=== PATIENT | male | born 1995 ===

== ENCOUNTER 2016-10-04 12:01 | Emergency (ER) | payer OTHER ==
[2016-10-04] MEDS ORDERED: Naproxen 550 mg Tab PO STA (13:36)
[2016-10-04] MEDS ORDERED: Alum-Mag Hydrox-Simethicone Susp (30 mL) PO STA (13:36)
--- NOTE | 2016-10-04 13:43 | C.PDOC ---
History Of Present Illness 21 y/o male presents to ED with complaint of right sided abdominal pain since yesterday. Patient notes he had food poisoning after eating partially cooked fish on (5 days ago), with fever, vomiting, diarrhea, and abdominal pain lasting for 3 days. Patient states that symptoms have resolved but he has constant pain to the right side of his chest that the pain worsens with deep breaths. Otherwise, denies any other complaints. Time Seen by Provider: 10/04/16 13:15 Chief Complaint (Nursing): Abdominal Pain History Per: Patient History/Exam Limitations: no limitations Onset/Duration Of Symptoms: Days Current Symptoms Are (Timing): Still Present Location Of Pain/Discomfort: RUQ, RLQ Radiation Of Pain To:: None Quality Of Discomfort: "Pain" Associated Symptoms: denies: Fever, Chills, Nausea, Vomiting, Diarrhea, Urinary Symptoms Exacerbating Factors: Deep Breaths Recent travel outside of the [place]: No Past Medical History Reviewed: Historical Data, Nursing Documentation, Vital Signs Vital Signs: Last Vital Signs Temp 98.6 F 10/04/16 12:07 Pulse 65 10/04/16 12:07 Resp 20 10/04/16 12:07 BP 119/76 10/04/16 12:07 Pulse Ox 98 10/04/16 14:20 - Medical History PMH: No Chronic Diseases Family History: States: No Known Family Hx - Social History Hx Alcohol Use: No Hx Substance Use: No - Immunization History Hx Influenza Vaccination: No Review Of Systems Except As Marked, All Systems Reviewed And Found Negative. Constitutional: Negative for: Fever, Chills Cardiovascular: Negative for: Chest Pain Respiratory: Negative for: Cough, Shortness of Breath Gastrointestinal: Positive for: Abdominal Pain. Negative for: Vomiting, Diarrhea Skin: Negative for: Rash Physical Exam - Physical Exam Appears: Non-toxic, No Acute Distress Skin: Normal Color, Warm, Dry, No Rash Head: Atraumatic, Normacephalic Eye(s): bilateral: Normal Inspection, PERRL, EOMI Oral Mucosa: Moist Throat: No Erythema, No Exudate Neck: Normal ROM, Supple Chest: Symmetrical Cardiovascular: Rhythm Regular, No Friction Rub, No Murmur Respiratory: Normal Breath Sounds, No Rales, No Rhonchi, No Wheezing Gastrointestinal/Abdominal: Soft, No Tenderness, No Distention, No Guarding, No Rebound Back: Normal Inspection, No CVA Tenderness Extremity: Normal ROM, Capillary Refill (< 2 sec.) Neurological/Psych: Oriented x3, Normal Speech, Normal Cognition, Normal Motor Gait: Steady ED Course And Treatment O2 Sat by Pulse Oximetry: 98 (RA) Pulse Ox Interpretation: Normal - Other Rad Obstructive Series XR X-Ray: Viewed By Me, Read By Radiologist Interpretation: FINDINGS: CHEST: The cardiomediastinal silhouette appears within normal limits of size. No focal consolidation, significant pleural effusion, or definite pneumothorax identified.Please note that chest x-ray has limited sensitivity for the detection of pulmonary masses. ABDOMEN AND PELVIS: Nonspecific bowel gas pattern without findings to suggest obstruction. Mild constipation. No definite free air. No acute osseous abnormality is detected. IMPRESSION: Mild constipation. Progress Note: Pepcid, Maalox, naproxen, and obstructive series x-ray ordered. Medical Decision Making Medical Decision Making: On re-exam, the patient reports improvement of symptoms. Lungs are CTA, heart is RRR, abdomen is soft, non-tender and patient is tolerating PO well. Ambulatory in the ED with steady gait. Follow up with the medical doctor within 1-2 days. Return if worsened. Disposition - Disposition Referrals: [facility] [Outside] Disposition: HOME/ ROUTINE Disposition Time: 14:15 Condition: GOOD Additional Instructions: Follow up with the medical doctor within 1-2 days. Return if worsened. Prescriptions: Famotidine [Pepcid] 20 mg PO DAILY #20 tab Naproxen [Naprosyn] 500 mg PO BID #20 tab Instructions: Pleurisy (ED) - Clinical Impression Clinical Impression: Musculoskeletal chest pain - PA / WEIGH BOSS / Resident Statement MD/DO has reviewed & agrees with the documentation as recorded. - Scribe Statement The provider has reviewed the documentation as recorded by the Scribe Manoj Bauer All medical record entries made by the [employer] were at my direction and personally dictated by me. I have reviewed the chart and agree that the record accurately reflects my personal performance of the history, physical exam, medical decision making, and the department course for this patient. I have also personally directed, reviewed, and agree with the discharge instructions and disposition.
--- NOTE | 2016-10-04 14:12 | RAD ---
PROCEDURE: Radiographs of the chest and abdomen (obstructive series) HISTORY: pleuritic and abd pain COMPARISON: None available. FINDINGS: CHEST: The cardiomediastinal silhouette appears within normal limits of size. No focal consolidation, significant pleural effusion, or definite pneumothorax identified.Please note that chest x-ray has limited sensitivity for the detection of pulmonary masses. ABDOMEN AND PELVIS: Nonspecific bowel gas pattern without findings to suggest obstruction. Mild constipation. No definite free air. No acute osseous abnormality is detected. IMPRESSION: Mild constipation.
[2016-10-04] MEDS ORDERED: Naproxen 550 mg Tab PO ONE (14:13)
[2016-10-04] MEDS ORDERED: Aluminum Hydroxide/Magnesium Hydroxide Susp (30 mL) ONE (14:13)
[2016-10-04 14:35] VITALS: BP 111/73; PULSE 56; RESP 18; TEMP 98.5; O2SAT 99
== END 2016-10-04 14:50 | disposition home or self-care (01) ==
LOC: C.ER 12:01
DX: R07.89 Other chest pain (principal)

== ENCOUNTER 2017-02-02 18:06 | Emergency (ER) | payer OTHER ==
[2017-02-02 18:11] VITALS: RESP 18; O2SAT 100
--- NOTE | 2017-02-02 18:16 | C.PDOC ---
History Of Present Illness 21 yo male come in for evaluation of Left knee pain gradually developed since early today after sustained twisting injury to left knee. Pt sts, " was getting of the car and turn my body while my legs were still n ground". Pt sts, gradually developed localized left knee pain over lateral aspect, non-radiating , worse with ambulation. Otherwise, pt denies fall, denies obvious deformity, weakness, sensory or vascular deficits to Left knee and leg. Ambulate to ED, noted knee brace over the left knee. Time Seen by Provider: 02/02/17 18:12 Chief Complaint (Nursing): Lower Extremity Problem/Injury History Per: Patient Onset/Duration Of Symptoms: Gradual Past Medical History Reviewed: Historical Data, Nursing Documentation, Vital Signs Vital Signs: Last Vital Signs Temp 99.2 F 02/02/17 18:10 Pulse 80 02/02/17 18:10 Resp 18 02/02/17 18:10 BP 105/71 02/02/17 18:10 Pulse Ox 100 02/02/17 18:28 - Medical History PMH: No Chronic Diseases Surgical History: No Surg Hx Family History: States: Unknown Family Hx - Social History Hx Alcohol Use: No Hx Substance Use: No - Immunization History Hx Tetanus Toxoid Vaccination: No Hx Influenza Vaccination: No Hx Pneumococcal Vaccination: No Review Of Systems Except As Marked, All Systems Reviewed And Found Negative. Constitutional: Negative for: Fever, Chills Musculoskeletal: Positive for: Other (Left knee pain) Skin: Negative for: Bruising Neurological: Negative for: Weakness, Numbness Physical Exam - Physical Exam Appears: Well, Non-toxic, No Acute Distress Skin: Normal Color, Warm, No Rash, No Ecchymosis Head: Atraumatic, Normacephalic Extremity: Normal ROM (Left knee), Tenderness (over lateral aspect left knee with nos mild edema.), No Pedal Edema, No Calf Tenderness (left), Capillary Refill (less than 2sec to left foot), No Deformity Neurological/Psych: Oriented x3, Normal Speech, Normal Motor, Normal Sensation, Normal Reflexes ED Course And Treatment O2 Sat by Pulse Oximetry: 100 - Other Rad Knee, left X-Ray: Interpreted by Me, Viewed By Me Interpretation: no acute fx or dislocation Progress Note: On re-eval, pt is afebrile, hemodynamicaly stable. Non-toxic. Ambulatory in ED with stable gait. LLE: exam c/w knee sprain. FAROM, no neurovascular deficits, (-) deformity. Neuorlogicaly intact. Left knee xray review and appears normal study. Pt has clinical findings c/w knee sprain. Earle wrap applied to left knee. Pt advised on course of ds. ref. to f/u with Ortho in 2-3 days for re-eavl. return if any new changes. Disposition Counseled Patient/Family Regarding: Studies Performed, Diagnosis, Need For Followup - Disposition Referrals: [facility] [Outside] [facility] [place] [Outside] Disposition: HOME/ ROUTINE Disposition Time: 18:45 Condition: STABLE Additional Instructions: EARLE WRAP TO LEFT KNEE OR KNEE BRACE FOR 2-3 WEEKS LIGHT DUTY TO LEFT KNEE, AVOID PROLONG WALKING, KNEE BENDING TAKE MEDICATION PRESCRIBED FOLLOW UP WITH ORTHOPEDIST IN 2-3 DAYS FOR RE-EVALUATION. RETURN TO ED IF ANY NEW CHANGES. Prescriptions: Ibuprofen [Motrin Tab] 400 mg PO Q6 #14 tab Instructions: Knee Sprain (ED) Forms: [employer] (Gabonese) - Clinical Impression Clinical Impression: Knee sprain
[2017-02-02 19:20] VITALS: BP 116/72; PULSE 66; TEMP 98.1
--- NOTE | 2017-02-03 08:23 | RAD ---
PROCEDURE: Left Knee Radiographs. HISTORY: Pain. COMPARISON: None. FINDINGS: BONES: No destructive lesion identified. No fracture. JOINTS: Normal. No osteoarthritis. JOINT EFFUSION: None. OTHER FINDINGS: None. IMPRESSION: Normal radiographs of the left knee.
== END 2017-02-02 19:21 | disposition home or self-care (01) ==
LOC: SUPCPDRO 18:06 → C.ER 18:06
DX: S83.92XA Sprain of unspecified site of left knee, initial encounter (principal); X50.9XXA Other and unspecified overexertion or strenuous movements or postures, initial encounter